=== PATIENT | male | born 1930 | race Caucasian/White ===

== ENCOUNTER → 2017-06-02 | Outpatient (CLI) | payer OTHER ==
[~2017-06-02] MED LIST: ACETAMINOPHEN1 EACH PO; AMBIEN 5 MG TABL5 M1 PO; ARTIFICIAL TEAR15 M1 OPHTHALMIC; ASPIR 8181 MG PO; ATORVASTATIN CA40 MG PO; BUTALB-APAP-CA1 EACH PO; CARVEDILOL6.25 MG PO; CHILDREN'S ASPI81 M1 PO; CLARITIN10 MG PO; COLACE100 MG PO; COREG6.25 MG PO; COUMADIN 3 MG TA3 M1 PO; COUMADIN 4 MG TA4 M1 PO; CYCLOBENZAPRINE10 MG PO; DIGOXIN125 MCG PO; DOXYCYCLINE 10100 MG PO; DUONEB 2.5-0.5 M3 ML INH; DUONEB 2.5-0.5 M3 ML PO; FINASTERIDE5 MG PO; FLEXERIL PO; FLOMAX0.4 MG PO; FLONASE 0.05%50 MCG NASAL; FUROSEMIDE 40 M40 M1 PO; HYDROCODONE-AP1 EAC6 PO; LASIX 40 MG TAB40 M2 PO; LEVAQUIN 500 M500 M1 PO; LEVAQUIN 500 M500 M2 PO; LEVAQUIN 750 M750 MG PO; LISINOPRIL2.5 M1 PO; LISINOPRIL2.5 MG PO; LORATIDINE 10 M10 M1 PO; MIRALAX17 GM PO; MIRALAX255 GM PO; MUCINEX TA600 MG/TA2 PO; NITROGLYCERIN0.4 MG SUBLING; PACERONE 200 M200 M1 PO; PACERONE200 MG PO; PLAVIX 300 MG300 M1 PO; POTASSIUM20 PO; PROSCAR 5MG TABL5 MG PO; PROTONIX40 M1 PO; SENOKOT-S1 TA1 PO; SINGULAIR 10 MG10 M1 PO; SYNTHROID150 MCG PO; TESSALON PERLE100 MG PO; TYLENOL325 MG PO; VISINE-A EYE DR15 M1 OP; VITAMIN D250000 UNIT PO
[2017-06-02 14:23] LABS: CALCIUM 8.9 mg/dL (8.5-10.1); CREATININE 1.5 mg/dL (0.6-1.3); POTASSIUM 4.3 mmol/L (3.5-5.1)
== END ==
LOC: M.LAB 13:48
PROVIDERS: Internal Medicine Cardiovascular Disease
DX: I12.9 Hypertensive chronic kidney disease with stage 1 through stage 4 chronic kidney disease, or unspecified chronic kidney disease (principal); N18.4 Chronic kidney disease, stage 4 (severe); I48.91 Unspecified atrial fibrillation; E87.1 Hypo-osmolality and hyponatremia; E78.5 Hyperlipidemia, unspecified; I25.10 Atherosclerotic heart disease of native coronary artery without angina pectoris; N40.0 Benign prostatic hyperplasia without lower urinary tract symptoms; N17.9 Acute kidney failure, unspecified; Z87.891 Personal history of nicotine dependence

== ENCOUNTER 2017-08-25 06:48 | Inpatient (IN) | payer OTHER, SELFPAY ==
[~2017-08-25] VITALS: Ht 160 cm; Wt 79.4 kg
--- NOTE | ~2017-08-25 | EKG ---
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 CARRION : 1930 Requested By: Sha Domingo Order Number: [id number] MD: Measurements Intervals [place] Rate: 77 P: GA: QRS: -12 QRSD: 102 T: 164 QT: 363 QTc: 411 Interpretive Statements Atrial fibrillation Ventricular bigeminy Repol abnrm suggests ischemia, anterolateral Compared to ECG 08/30/2017 09:37:07 Ventricular premature complex(es) now present Early repolarization now present Supraventricular rhythm no longer present Inferior Q waves no longer present Q waves no longer present T-wave abnormality no longer present Possible ischemia still present [email or web address] By: 40 40 Epiphany Epiphany, /IRVING
[~2017-08-25 06:48] MED LIST changes: -DIGOXIN125 MCG PO; -DOXYCYCLINE 10100 MG PO; -FINASTERIDE5 MG PO; -LEVAQUIN 750 M750 MG PO; -PROTONIX40 M1 PO; -SYNTHROID150 MCG PO; -VITAMIN D250000 UNIT PO
[2017-08-25 06:52] VITALS: BP 141/69
[2017-08-25] MEDS ORDERED: FINASTERIDE5 MG PO (07:06)
[2017-08-25] MEDS ORDERED: NITROGLYCERIN0.4 MG SUBLING (07:07)
[2017-08-25] MEDS ORDERED: SYNTHROID150 MCG PO (07:08)
[2017-08-25] MEDS ORDERED: VITAMIN D250000 UNIT PO (07:08)
[2017-08-25 07:29] LABS: URINE BILIRUBIN NEGATIVE (Negative); URINE BLOOD NEGATIVE (Negative); URINE CLARITY CLEAR; URINE COLOR YELLOW; URINE GLUCOSE-RANDOM NEGATIVE (Negative); URINE KETONES NEGATIVE (Negative); URINE LEUKOCYTES-REFLEX NEGATIVE (Negative); URINE NITRITE-REFLEX NEGATIVE (Negative); URINE PROTEIN TRACE (Negative); URINE SPECIFIC GRAVITY 1.015 (1.005-1.030)
[2017-08-25 07:40] LABS: ABSOLUTE EOSINOPHILS 0.1 thou/uL (0.0-0.7); ABSOLUTE LYMPHOCYTES 3.2 thou/uL (0.8-5.3); ABSOLUTE MONOCYTES 1.5 thou/uL (0.0-1.2); ABSOLUTE NEUTROPHILS 5.5 thou/uL (1.6-8.1); BASOPHILS 0.4 %; EOSINOPHILS 0.5 %; HEMATOCRIT 40.2 % (42.0-52.0); HEMOGLOBIN 13.6 gm/dL (14.0-18.0); LYMPHOCYTES 30.7 %; MCH 34.4 pg (26.0-34.0); MCHC 33.9 g/dL (28.0-37.0); MCV 101.6 fL (80.0-100.0); MONOCYTES 14.7 %; NUCLEATED RBCS 0 /100WBC; PLATELET COUNT* 149 thou/uL (150-400); POLYS 53.7 %; RBC 3.96 mil/uL (4.50-6.00); WBC 10.3 thou/uL (4.0-11.0)
[2017-08-25 07:51] LABS: ANION GAP 4 mmol/L (7-16); BUN 14 mg/dL (7-18); CALCIUM 8.4 mg/dL (8.5-10.1); CHLORIDE 108 mmol/L (98-107); CO2 32 mmol/L (21-32); CREATININE 1.3 mg/dL (0.6-1.3); GLUCOSE 106 mg/dL (70-99); POTASSIUM 3.4 mmol/L (3.5-5.1); SODIUM 144 mmol/L (136-145)
[2017-08-25 07:53] LABS: INR 1.1; PROTIME 11.1 Seconds (9.20-11.50)
[2017-08-25 08:01] LABS: ALBUMIN 3.4 g/dL (3.4-5.0); ALKALINE PHOSPHATASE 55 U/L (46-116); NT-PRO BRAIN NAT PEPTIDE 1779 pg/mL (<300); SGOT 17 U/L (15-37); SGPT 12 U/L (30-65); TOTAL BILIRUBIN 1.3 mg/dL (<0.1-1.0); TOTAL PROTEIN 6.7 g/dL (6.4-8.2); TROPONIN-I LEVEL <0.06 ng/mL (<0.06)
[2017-08-25 12:10] LABS: CALCIUM 8.6 mg/dL (8.5-10.1); CREATININE 1.3 mg/dL (0.6-1.3); MAGNESIUM 1.8 mg/dL (1.8-2.4); POTASSIUM 3.6 mmol/L (3.5-5.1)
[2017-08-25 12:50] VITALS: BP 134/67
--- NOTE | 2017-08-25 14:28 | EKG ---
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 : 1930 Requested By: Samson Menendez Order Number: [id number] MD: Abe Longoria Measurements Intervals [place] Rate: 86 P: -39 IN: 201 QRS: -10 QRSD: 103 T: 141 QT: 379 QTc: 454 Interpretive Statements Sinus rhythm Ventricular bigeminy Abnormal T, consider ischemia, lateral leads Baseline wander in lead(s) V1 Compared to ECG 04/30/2016 21:25:35 T-wave abnormality now present Possible ischemia now present Left bundle-branch block no longer present ST (T wave) deviation no longer present Electronically Signed On 08-25-2017 14:28:16 CDT by Abe Longoria [email or web address] <ELECTRONICALLY SIGNED> By: Abe Longoria MD, [facility] 08/25/17 1428 0655 0655 Abe Longoria MD, [facility] /EPI
--- NOTE | 2017-08-25 16:28 | NUR ---
VSS, ASSUMED CARE OF PT FROM ER, ASSESSMENT PERFORMED AND CHARTED, FALL PRECAUTIONS IN PLACE AND CALL LIGHT IN REACH, PT IS A&O4 AND [place], PT IS TRACING SR ON THE MONITOR AND INTERMIT BIGEMINY PT DENIES ANY PAIN AND IS UP WITH ONE, PT IS SOB AND ON 2L NC BUR LUNGS ARE CLR/DIM, WILL FOLLOW WITH PLAN OF CARE,
[2017-08-25 16:29] VITALS: BP 128/68
[2017-08-25 20:00] VITALS: BP 120/55
[2017-08-26] VITALS (7 sets, daily range): BP systolic 91–132; BP diastolic 44–67
[2017-08-26 02:17] LABS: BE 3.8 mmol/L (-2 to +3); HCO3 29.6 mmol/L (22.0-26.0); PCO2 49.1 mmHg (35.0-45.0); PO2 89.4 mmHg (75.0-100.0); pH 7.398 (7.340-7.450)
--- NOTE | 2017-08-26 02:35 | NUR ---
PHYSICIAN COLLABORATION-- RESPIRATION APPEAR LABORED ET WORSENING GRUNTS CAN BE HEARD, NOTED ACCESSORY USE SHORTEND EXPIATORY CYCLES -- O2 SAT 97 ON 1.5 L NC PATIENT REPORTS HOME USE OF NEBULIZERS HOWEVER NOT DOCUMENTED ON RECONCILIATION OR LISTED IN PHARMACY HISTORY. APPEARS VERY SYMPTOMATIC DR. SMITH GAVE ORDERS DOCUMENTED WILL CONTINUE TO MONITOR
[2017-08-26 05:47] LABS: HEMATOCRIT 41.5 % (42.0-52.0); HEMOGLOBIN 14.2 gm/dL (14.0-18.0); MCH 34.7 pg (26.0-34.0); MCHC 34.3 g/dL (28.0-37.0); MCV 101.1 fL (80.0-100.0); MPV 9.9 fl. (7.2-11.1); RBC 4.11 mil/uL (4.50-6.00); RDW-CV 13.8 % (10.5-14.5); WBC 11.4 thou/uL (4.0-11.0)
[2017-08-26 06:19] LABS: CALCIUM 8.4 mg/dL (8.5-10.1); CREATININE 1.7 mg/dL (0.6-1.3); MAGNESIUM 1.7 mg/dL (1.8-2.4); POTASSIUM 3.8 mmol/L (3.5-5.1)
--- NOTE | 2017-08-26 06:52 | NUR ---
ASSUMED CARE OF PATIENT AT 1900 THE PATIENT REMAINS SR ON THE MONITOR O2 SAT MAINTAINED ON RA CONTINUES TO BE UP WITH ASSIST OF STAFF DURING SHIFT ADDITIONAL ORDERS OBTAINED DUE TO INCREASED RESPIRATORY EFFORTS NOTED LABORED BREATHING ACCESSORY USE RECEIVED ORDERS DOCUMENTED INTERVENTIONS EFFECTIVE THIS AM RESPIRATIONS AT REST ARE NON-LABORED RATE NORMAL, NOTED COUGHING AFTER TAKING THIS AM SCHEDULED PILL WITH WATER PATIENT CONTINUES TO PROGRESS TOWARDS GOALS SAFETY INTERVENTIONS CONTINUE BED LOWERED WHEELS LOCKED CALL LIGHT IN REACH SIDE RAILS UP REPORT TO BE GIVEN TO ONCOMING RN
--- NOTE | 2017-08-26 10:12 | NUR ---
VSS, ASSUMED CARE IN THE AM, ASSESSMENT PERFORMED AND CHARTED, FALL PRECAUTIONS IN PLACE AND CALL LIGHT IN REACH, PT IS ON 1.5 L NC AND IS A&O4 BUT IS FORGEFUL. IS [place] UP WITH [place] ANY PAIN AT THIS TIME, PT IS TRACING SR C PVA AND 1 D BLK ON THE MONITOR, PT GOAL IS TO SIT UP FOR ALL MEALS AND IMPROVE BREATHING WILL FOLLOW WITH PLAN OF CARE AND HOURLY ROUNDS.
--- NOTE | 2017-08-26 18:15 | NUR ---
VSS, PT PROGRESSING TOWARDS GOAL, PT IS IN BED WITH CALL LIGHT IN REACH AND FALL PRECAUTIONS IN PLACE, PT WAS UP TO CHAIR FOR MEALS AND WAS GIVEN I-S FOR BREATHING, PT GOAL MET WITH IMPROVED BREATHING AND SITTING UP IN CHAIR, HOURLY ROUNDS COMPLETED. PT IS TRACING SR ON THE MONITOR AND NOT OTHER STATUS CHANGE NOTED AT THIS TIME.
[2017-08-27 04:00] VITALS: BP 113/43
[2017-08-27 04:51] LABS: HEMATOCRIT 39.7 % (42.0-52.0); HEMOGLOBIN 13.6 gm/dL (14.0-18.0); MCH 34.7 pg (26.0-34.0); MCHC 34.4 g/dL (28.0-37.0); MCV 100.9 fL (80.0-100.0); MPV 9.3 fl. (7.2-11.1); RBC 3.93 mil/uL (4.50-6.00); RDW-CV 13.7 % (10.5-14.5)
--- NOTE | 2017-08-27 05:08 | NUR ---
RECIEVED REPORT AT 1930. ASSESSMENT COMPLETED CHARTED. NO C/O PAIN. ABLE TO MAKE NEEDS KNOWN, CALL LIGHT WITHIN REACH, UP WITH ASSIST. NON PRODUCTIVE COUGH NOTED. UP WITH STANDBY. WILL CONTINUE WITH PLAN OF CARE.
[2017-08-27 05:42] LABS: CALCIUM 8.4 mg/dL (8.5-10.1); CREATININE 1.9 mg/dL (0.6-1.3); MAGNESIUM 2.4 mg/dL (1.8-2.4); POTASSIUM 3.6 mmol/L (3.5-5.1)
[2017-08-27 08:15] VITALS: BP 124/63
[2017-08-27 12:01] VITALS: BP 118/49
--- NOTE | 2017-08-27 13:31 | CON ---
[address] [address] CONSULTATION Name: JT MORRIS Room: [address] IN .R.#: [id number] Admission: 08/25/17 Attend Phys: Riccardo Mason, Discharge: Date of : [birth year] Report #: [id number] THIS REPORT FOR: //name// CC: Manuelito Mason DATE OF SERVICE: 08/26/2017 CARDIOLOGY CONSULTATION HISTORY OF PRESENT ILLNESS: I was asked by Dr. Mason to see this 87-year-old white male in cardiology consultation for evaluation and treatment of congestive heart failure with shortness of breath and history of bigeminy at some point. This man is a poor historian. He tells me that he has had headaches and neck pain with shortness of breath for quite a while. He does not know how long. It sounds like it maybe months or maybe even a year. He also gets quite short of breath with these episodes. He has general shortness of breath otherwise and he has been worse with shortness of breath for the last week, so he came to the Emergency Room. He has not had chest pain. PAST MEDICAL HISTORY: Includes coronary artery disease and ischemic cardiomyopathy, paroxysmal atrial fibrillation, pulmonary hypertension, GI bleeds, essential hypertension and hyperlipidemia. On his admission chest x-ray, he is said to have an increased density in the right lower lobe consistent with either pneumonia or atelectasis or right lung mass. I have looked at the x-rays. I do note that he has elevated diaphragms bilaterally, either that or he took a poor inspiration. One of the x-rays was read as showing pulmonary vascular redistribution, which may be there; however, I also think he has got some compression of lung from poor inspiration. He may have some chronic interstitial lung disease possibly. He does have dyspnea on exertion and orthopnea, but not PND. He does get edema. He has not had syncope. Coronary risk factors include a past history of smoking and he quit 40 years ago. He does have high cholesterol. He does not have diabetes. He does have high blood pressure. There is no family history of heart disease. He does have chronic renal disease. His most recent creatinine was 1.7, which is up a bit from admission where I believe it was 1.3 on admission. He has had a PCI to his right coronary artery in 2010. He had a GI bleed on warfarin. He has not had peripheral vascular disease or claudication, strokes or TIAs, but he is having quite a bit of head pain and neck pain. CT of the head was negative. Neck CT was not done nor was a CT of the chest done and those have been ordered by me. ALLERGIES: HE IS ALLERGIC TO PENICILLIN. HOME MEDICATIONS: Include aspirin 81 mg daily, carvedilol 6.25 mg b.i.d., finasteride 5 mg daily, furosemide 40 mg daily, levothyroxine [address] [place] [address] CONSULTATION Name: JT MORRIS Room: [address] IN [facility].#: [id number] Admission: 08/25/17 Attend Phys: Riccardo Mason, Discharge: Date of : [birth year] Report #: [id number] hypothyroidism, he is on lisinopril 2.5 mg daily, montelukast 10 mg at bedtime apparently for allergies, p.r.n. nitroglycerin, Flomax 0.4 mg daily and vitamin D 50,000 units weekly. REVIEW OF SYSTEMS: Positive for weakness, shortness of breath with exercise, shortness of breath lying down, extremity edema, thyroid trouble, peptic ulcer disease. Medical allergies, penicillin allergy, arthritis, wearing glasses, decreased hearing and wearing dentures. Otherwise, his review of systems is negative for some 40 different complaints in 14 different system categories. Please see review of system form for details and negatives in review of systems. Systems reviewed include central nervous system, general, respiratory, cardiovascular, endocrine, gastrointestinal, genitourinary, hematologic, lymphatic, allergic, immunologic, psychiatric, musculoskeletal, skin, eyes, ears, nose, mouth and throat. SOCIAL HISTORY: He is retired, does not smoke, drink or use illegal drugs. FAMILY HISTORY: Not well known to him. PHYSICAL EXAMINATION: GENERAL: He presents as well-developed, well-nourished white male, in no acute distress. HEENT: Head is atraumatic. Eyes clear. NECK: Supple. There is no jugular venous distention or hepatojugular reflux. Thyroid is not enlarged. There is no adenopathy. SKIN: Warm and dry. Mucous membranes are moist. LUNGS: Revealed clear left lungs, but there are markedly decreased breath sounds in the right lung with some coarse breath sounds in the base on the right. HEART: Revealed normal first and second heart sound. There is soft S4. There is no S3. There are no murmurs, rubs, thrills, heaves or gallops. PMI is nondisplaced. ABDOMEN: Soft, flat, nontender, no palpable masses, no organomegaly. EXTREMITIES: Reveal no cyanosis, clubbing or edema. NEUROLOGIC: The patient mentated fairly normally, talked normally, moved all extremities normally. LABORATORY DATA: EKG showed normal sinus rhythm with frequent ventricular premature beats and one run of ventricular bigeminy. His BNP was 1779. Troponin was 0.06. IMPRESSION: 1. Mild congestive heart failure that is probably apparently acute on chronic systolic type that has improved compared to admission as he was diuresed with IV Lasix since he has been there. 2. [place] [address] CONSULTATION Name: JT MORRIS Room: [address] IN ..#: [id number] Admission: 08/25/17 Attend Phys: Riccardo Mason, Discharge: Date of : [birth year] Report #: [id number] 3. Possible right lung mass. 4. Coronary artery disease. 5. Ischemic cardiomyopathy. 6. Paroxysmal atrial fibrillation. 7. Pulmonary hypertension. 8. Gastrointestinal bleeds. 9. Essential hypertension. 10. Hyperlipidemia. 11. Hypothyroidism. 12. Ventricular premature contractions that are asymptomatic. RECOMMENDATION: I would check an echo. I would recheck his BNP and BMP and a magnesium. I would get a CT of his chest today as well as a CT of his neck and spine because of his neck pain and poor inspiration. When his BNP comes back, he might be started back on his daily dose of Lasix. I am not sure I would adjust any of his other medicines as heart failure was only minimal here. Thank you very much for asking me to see this patient. If any questions, please feel free to contact me. <ELECTRONICALLY SIGNED> By: Carmenza Joshi MD, [facility] 08/27/17 1331 1231 [id number]. Sam Joshi MD, [facility] /nt
[2017-08-27 16:00] VITALS: BP 82/49
[2017-08-27 17:21] LABS: URINE BILIRUBIN NEGATIVE (Negative); URINE BLOOD NEGATIVE (Negative); URINE CLARITY CLEAR; URINE COLOR YELLOW; URINE GLUCOSE-RANDOM NEGATIVE (Negative); URINE KETONES NEGATIVE (Negative); URINE LEUKOCYTES-REFLEX NEGATIVE (Negative); URINE NITRITE-REFLEX NEGATIVE (Negative); URINE PROTEIN NEGATIVE (Negative); URINE UROBILINOGEN 0.2 E.U./dl (0.2-1.0)
[2017-08-27 17:27] VITALS: BP 92/50
--- NOTE | 2017-08-27 18:50 | NUR ---
ASSUMED PT CARE AT 0730, FULL ASSESMENT DONE CHARTED. PT A/O X4, LUMBEE, PLESANT. PT C/O DOSHI PAIN, ALEVE GIVEN WITH GOOD RESULTS. PTS VSS, BP LOW THIS AFTERNOON, DR LASSITER NOTIFIED, NO NEW ORDERS, WILL MONITOR CLOSLY. PTS FAMILY IN TO VISIT, ABLE TO GET UPDATE FROM DR LASSITER. PT WAS UNABLE TO VOID THIS AM, BLADDER SCANNED FOUND TO HAVE >500 MLS IN BLADDER, PT VOIDED AND SCANNED HAD 280 REMAINING, STRAIT CATH ORDERED FROM . PTS BLADDER EMPTIED AT THIS POINT. PT USES CALL LIGHT APPROPRILATY. FALL PRECATUIONS IN PLACE. WILL CONTINUE TO MONITOR.
[2017-08-28 00:08] VITALS: BP 95/53
--- NOTE | 2017-08-28 03:59 | NUR ---
ASSUMED CARE OF PT AT 1900. PT IS ALERT AND ORIENTED. VSS. PERRLA. PT REORTS SOME SOA WITHOUT HIS O2. PT IS IN SINUS RYTHM AT THIS TIME BUT ALSO HAS BEEN NOTED TO BE IN A FIB. PT HAS A HISTORY OF PAROXYSMALS A FIB. PT IS SLEEPING QUIETLY IN BED. RESPIRATIONS ARE EVEN AND NONLABORED. WILL CONTINUE TO MONITOR PT.
[2017-08-28 04:13] VITALS: BP 76/51
[2017-08-28 05:01] LABS: HEMATOCRIT 38.4 % (42.0-52.0); HEMOGLOBIN 13.2 gm/dL (14.0-18.0); MCH 34.6 pg (26.0-34.0); MCHC 34.4 g/dL (28.0-37.0); MCV 100.4 fL (80.0-100.0); MPV 9.2 fl. (7.2-11.1); RBC 3.82 mil/uL (4.50-6.00); RDW-CV 13.5 % (10.5-14.5); WBC 7.2 thou/uL (4.0-11.0)
[2017-08-28 05:46] LABS: ALBUMIN 3.1 g/dL (3.4-5.0); CREATININE 2.1 mg/dL (0.6-1.3); MAGNESIUM 2.4 mg/dL (1.8-2.4); POTASSIUM 3.6 mmol/L (3.5-5.1); TOTAL BILIRUBIN 1.2 mg/dL (<0.1-1.0); TOTAL PROTEIN 5.9 g/dL (6.4-8.2)
--- NOTE | 2017-08-28 06:58 | NUR ---
PT HAD 250 ML VIA BLADDER SCAN. PT VOIDED AND SCANNED AGAIN SHOWING ONLY 55 ML
[2017-08-28 07:30] VITALS: BP 100/60
--- NOTE | 2017-08-28 08:31 | NUR ---
VSS, ASSUMED CARE IN THE AM, ASSESSMENT PERFORMED AND CHARTED, FALL PRECAUTIONS IN PLACE AND CALL LIGHT IN REACH, PT IS A&O4 AND [place], UP WITH ONE, ON 2L NC, TRACING SR WITH PVC AND 1DBLK, PT HAS A HEADACH, HIS GOAL IS TO SIT UP IN CHAIR FOR MEALS AND WALK IN ROOM.
[2017-08-28 12:07] VITALS: BP 105/46
[2017-08-28 15:15] VITALS: BP 90/47
--- NOTE | 2017-08-28 15:30 | NUR ---
CM ASSESSMENT: Pt is A&O, SITKA. Resides at home with his and Dtr. Independent with ADLs. Pt uses a cane for mobility, also has a walker at home. Supportive family. No hx of HH. Hx of [facility] skilled. Goal is to return home once medically stable. No needs anticipated. Following.
--- NOTE | 2017-08-28 17:02 | NUR ---
VSS, PT IS PROGRESSING TOWARDS GOAL, PT WORKED WITH PT/OT HAS BEEN UP IN CHAIR FOR MEALS, PT IS ON RA AND IS TRACING SR ON THE MONITOR AND HE IS A&O4 BUT [place] AND FORGEFUL, FALL PRECAUTIONS IN PLACE AND CALL LIGHT IN REACH, HOURLY ROUNDS COMPLETED AND WILL FOLLOW WITH PLAN OF CARE,
--- NOTE | 2017-08-28 17:57 | EKG ---
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 : 1930 Requested By: Amos Polo Order Number: [id number] Reading MD: Amos Polo Measurements Intervals [place] Rate: 96 P: 222 NE: 277 QRS: 2 QRSD: 108 T: 160 QT: 399 QTc: 505 Interpretive Statements Sinus or ectopic atrial rhythm ventricular premature complexes, trigeminy Prolonged NE interval Compared to ECG 08/25/2017 06:55:44 Ectopic atrial rhythm now present First degree AV block now present Sinus rhythm no longer present T-wave abnormality still present Possible ischemia still present Electronically Signed On 08-28-2017 17:56:57 CDT by Amos Polo [email or web address] <ELECTRONICALLY SIGNED> By: Amos Polo MD, FACC 08/28/17 1756 0901 0901 Amos Polo MD, FAC /EPI
[2017-08-28 20:00] VITALS: BP 98/52
[2017-08-29] VITALS: BP 92/56
--- NOTE | 2017-08-29 03:36 | NUR ---
ASSUMED PT CARE AT 19;15. PT IS ALERT, AWAKE, ORIETNED X 4 , SINUS TACHY ON THE MONITOR WITH MULTIPLE PVCS. PT COMPLAINS OF HEADACHE LEVEL OF 5. ALEVE ADMINITERED TO RELIEVE PAIN. VITAL SIGNS TAKEN. BP IS 98/52, HR 121. PT IS ASYMPTOMATIC. VITAL SIGNS RESULTS WERE COMMUNICATED TO AGENCY SERVICE COORDINATOR. AROUND 3:00 AM PT RYTHM CHANGES ON AEROBICS INSTRUCTOR TO Nicole FLUTTER. STAT EKG PERFORMED IN THE ROOM. RESULTS SHOWS CHANGE OF RYTHM A. FLUTTER. BP IS 89/46 , HR 125 PT IS STILL ASYMPTOMATIC. CALL PLACED TO DR MCKEON CARDIOLOGIDT ON CASE. AWAITING CALL BACK. CHANGE COMMUNICATED TO DR. HUYNH. STATES TO WAIT FOR HR BUSINESS PARTNER CALL BACK. EKG SCRIPT PLACED IN CHART. PT IS NOW SITTING IN THE CHAIR IN THE ROOM . AWAITING CALL BACK AT THIS MOMENT. WILL CONTINUE TO MONITOR.
--- NOTE | 2017-08-29 04:02 | NUR ---
DR MCKEON CALL BACK AND GAVE NEW ORDER. SEE MAR.
[2017-08-29 05:23] LABS: ABSOLUTE BASOPHILS 0.1 thou/uL (0.0-0.2); ABSOLUTE EOSINOPHILS 0.2 thou/uL (0.0-0.7); ABSOLUTE LYMPHOCYTES 1.8 thou/uL (0.8-5.3); ABSOLUTE MONOCYTES 0.9 thou/uL (0.0-1.2); ABSOLUTE NEUTROPHILS 3.9 thou/uL (1.6-8.1); BASOPHILS 0.8 %; EOSINOPHILS 2.9 %; HEMATOCRIT 39.9 % (42.0-52.0); HEMOGLOBIN 13.6 gm/dL (14.0-18.0); LYMPHOCYTES 26.7 %; MCH 34.4 pg (26.0-34.0); MCHC 34.2 g/dL (28.0-37.0); MCV 100.7 fL (80.0-100.0); MONOCYTES 13.7 %; MPV 9.6 fl. (7.2-11.1); NUCLEATED RBCS 0 /100WBC; PLATELET COUNT* 169 thou/uL (150-400); POLYS 55.9 %; RBC 3.96 mil/uL (4.50-6.00); RDW-CV 13.4 % (10.5-14.5); WBC 6.9 thou/uL (4.0-11.0)
[2017-08-29 05:49] LABS: ALBUMIN 3.2 g/dL (3.4-5.0); CALCIUM 8.4 mg/dL (8.5-10.1); CREATININE 1.8 mg/dL (0.6-1.3); POTASSIUM 3.6 mmol/L (3.5-5.1); TOTAL PROTEIN 6.2 g/dL (6.4-8.2)
[2017-08-29 08:13] VITALS: BP 116/65
--- NOTE | 2017-08-29 08:24 | 2DMMODE ---
[place] [address] 2 D/M-MODE ECHOCARDIOGRAM Name: JT MORRIS Room: [address] IN [facility]#: [id number] Admission: 08/25/17 Attend Phys: Riccardo Daniel Discharge: Date of : [birth year] Date of Service: 08/28/17 1456 Report #: [id number] THIS REPORT FOR: //name// APPROVED REPORT Study performed: 08/28/2017 10:51:46 EXAM: Comprehensive 2D, Doppler, and color-flow Echocardiogram Patient Location: In-Patient Room #: 220 Status: routine BSA: 1.85 HR: 83 bpm BP: 100/60 mmHg Rhythm: Atrial Fibrillation Other Information Study Quality: Good Indications Congestive Heart Failure Dyspnea 2D Dimensions LVEF(%): 35.96 (>50%) IVSd: 12.26 (7-11mm) LVOT Diam: 20.63 (18-24mm) LVDd: 51.16 mm PWd: 11.32 (7-11mm) Ascending Ao: 32.83 (22-36mm) LVDs: 42.29 (25-40mm) Aortic Root: 34.00 mm Gregg's LVEF: 35.96 % Volumes Left Atrial Volume (Systole) LA ESV Index: 67.70 mL/m2 Aortic Valve AoV Peak Archie.: 1.03 m/s AO Peak Gr.: 4.25 mmHg LVOT Max P.68 mmHg AO Mean Gr.: 2.46 mmHg LVOT Mean P.92 mmHg LVOT Max V: 0.65 m/s AO V2 VTI: 19.74 cm LVOT Mean V: 0.45 m/s OTONIEL (VTI): 1.90 cm2 LVOT V1 VTI: 11.24 [place] [address] 2 D/M-MODE ECHOCARDIOGRAM Name: JT MORRIS Room: [address] IN .R.#: [id number] Admission: 08/25/17 Attend Phys: Riccardo Daniel Discharge: Date of : [birth year] Date of Service: 08/28/17 1456 Report #: [id number] MV Decel. Time: 173.60 ms MV E Max Archie.: 1.63 m/s MV PHT: 50.34 ms MVA (PHT): 4.37 cm2 TDI E/Lateral E': 10.19 E/Medial E': 23.29 Medial E' Archie.: 0.07 m/s Lateral E' Archie.: 0.16 m/s Pulmonary Valve PV Peak Archie.: 0.79 m/s PV Peak Gr.: 2.47 mmHg Tricuspid Valve TR Peak Gr.: 24.50 mmHg RVSP: 29.00 mmHg Left Ventricle The left ventricle is normal size. There is normal LV segmental wall motion. There is normal left ventricular wall thickness. Left ventricular systolic function is moderately decreased. LVEF is 40%. This study is not technically sufficient to allow evaluation of the LV diastolic function due to atrial fibrillation. Right Ventricle The right ventricle is normal size. The right ventricular systolic function is normal. Atria Left atrium is severely dilated. Right atrium is mildly dilated. Aortic Valve Mild aortic valve sclerosis. No aortic regurgitation is present. No hemodynamically significant valvular aortic stenosis. Mitral Valve The mitral valve is normal in structure. Mild mitral regurgitation. No evidence of mitral valve stenosis. Tricuspid Valve The tricuspid valve is normal in structure. Trace tricuspid regurgitation. The RVSP is ___29____ mmHg. Pulmonic Valve The pulmonary valve is normal in structure. There is no pulmonic [place] [address] 2 D/M-MODE ECHOCARDIOGRAM Name: JT MORRIS Room: [address] IN [facility]#: [id number] Admission: 08/25/17 Attend Phys: Riccardo Daniel Discharge: Date of : [birth year] Date of Service: 08/28/17 1456 Report #: [id number] Great Vessels The aortic root is normal in size. IVC is normal in size and collapses with >50% inspiration Pericardium There is no pericardial effusion. <Conclusion> The left ventricle is normal size. There is normal left ventricular wall thickness. Left ventricular systolic function is moderately decreased. LVEF is 40%. This study is not technically sufficient to allow evaluation of the LV diastolic function due to atrial fibrillation. The right ventricle is normal size. Left atrium is severely dilated. Right atrium is mildly dilated. Mild aortic valve sclerosis. No aortic regurgitation is present. No hemodynamically significant valvular aortic stenosis. The mitral valve is normal in structure. Mild mitral regurgitation. No evidence of mitral valve stenosis. The tricuspid valve is normal in structure. Trace tricuspid regurgitation. The RVSP is ___29____ mmHg. IVC is normal in size and collapses with >50% inspiration There is no pericardial effusion. There is normal LV segmental wall motion. <ELECTRONICALLY SIGNED> By: Benjie Reyna MD, FACC 08/28/17 1456 1456 1456 Benjie Reyna MD, FACC /INF
--- NOTE | 2017-08-29 09:33 | NUR ---
ASSUMED CARE OF PATIENT AFTER REPORT THIS MORNING. PATIENT AWAKE, ALERT, AND ORIENTED APPROPRIATELY. PHYSICAL ASSESSMENT COMPLETED AND CHARTED. NO COMPLAINTS OF PAIN. VITAL SIGNS STABLE. OXYGEN SATURATION WITHIN NORMAL LIMITS ON 2 LPM PER NASAL CANULA. RESPIRATORY TITRATED PATIENT OFF OF OXYGEN. WILL RECHECK SATURATION ON ROOM AIR. GIVEN SCHEDULED MEDICATIONS, SEE EMAR FOR DOCUMENTATION. PATIENT TRANSFERS AND AMBULATES WITH ASSISTANCE FROM STAFF. USES CALL LIGHT APPROPRIATELY. DENIES NEEDS AT THIS TIME. CALL LIGHT WITHIN REACH. NURSING WILL CONTINUE TO MONITOR.
[2017-08-29 11:56] VITALS: BP 110/56
--- NOTE | 2017-08-29 14:04 | EKG ---
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
[2017-08-29 15:39] VITALS: BP 104/49
--- NOTE | 2017-08-29 17:04 | EKG ---
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: [employer] : 1930 Requested By: Kenneth Maza Order Number: [id number] Risa MD: Amos Polo Measurements Intervals [place] Rate: 66 P: [place]: QRS: 7 QRSD: 109 T: 120 QT: 428 QTc: 449 Interpretive Statements Atrial flutter Ventricular premature complex Nonspecific T abnormalities, lateral leads Compared to ECG 08/29/2017 02:53:44 Ventricular premature complex(es) now present T-wave abnormality now present ST (T wave) deviation now present Atrial fibrillation no longer present Prolonged QT interval no longer present Electronically Signed On 08-29-2017 17:04:28 CDT by Amos Polo [email or web address] <ELECTRONICALLY SIGNED> By: Amos Polo MD, FACC 08/29/17 1704 1420 1420 Amos Polo MD, FACC /EPI
--- NOTE | 2017-08-29 17:23 | NUR ---
PATIENT REMAINS ALERT AND ORIENTED APPROPRIATELY. THIS NURSE NOTICED IRREGULAR-LOOKING RHYTHM ON ARMATURE WINDER. OBTAINED EKG AND RESULTS READ ATRIAL FLUTTER. PATIENT HAS FREQUENT PVCS AND PACS WELL. CURRENTLY TRACING BIGEMINY. HAS USED BATHROOM PRIVELEGES. FAMILY VISITED THIS AFTERNOON. PATIENT DENIES NEEDS AT THIS TIME. CALL LIGHT WITHIN REACH. NURSING WILL CONTINUE TO MONITOR.
[2017-08-29 19:50] VITALS: BP 117/59
[2017-08-29 23:38] VITALS: BP 115/69
[2017-08-30 04:25] VITALS: BP 106/45
[2017-08-30 05:54] LABS: ALBUMIN 3.2 g/dL (3.4-5.0); CALCIUM 8.5 mg/dL (8.5-10.1); CREATININE 1.6 mg/dL (0.6-1.3); MAGNESIUM 2.3 mg/dL (1.8-2.4); TOTAL BILIRUBIN 0.9 mg/dL (<0.1-1.0); TOTAL PROTEIN 6.2 g/dL (6.4-8.2)
--- NOTE | 2017-08-30 07:10 | NUR ---
Pt reports he rested well overnight. Up to recliner per pt request at [place] and stayed there until 299. Warm prune & apple juice given for no BM since Monday. No BM up to this point. Appears to be in SR with 1st degree AVB with frequent PVCs per monitor. VSS, no complaints. Will continue to monitor.
[2017-08-30 08:00] VITALS: BP 119/72
[2017-08-30 09:36] VITALS: BP 119/73
--- NOTE | 2017-08-30 10:42 | NUR ---
ASSUMED PT CARE AT 0700 PT IS ALERT AND ORIETNED X 4 PT IS UP WITH SBA PT IS NOT A FALL RISK, PT HAS PVC ON THE MONITOR CARDIOLOGY CLEARED PT TO DISCHARGE, PT CAN START PO LEVAQUIN ONCE DISCHARGED AND HOLD IV LEVAQUIN PER PHYSICIAN, PT IS PLEASANT AND COOPERATIVE, WILL CONTINUE TO MONITOR
[2017-08-30] MEDS ORDERED: DIGOXIN125 MCG PO (11:42)
[2017-08-30] MEDS ORDERED: LEVAQUIN 750 M750 MG PO (11:42)
--- NOTE | 2017-08-30 16:12 | EKG ---
[place] [address] ELECTROCARDIOGRAM REPORT Name: JT MORRIS Room: [address] IN M.R.#: [id number] Admission: 08/25/17 Attend Phys: Riccardo Mason, Discharge: 08/30/17 Date of : [birth year] Report #: [id number] THIS REPORT FOR: //name// [facility] Test Date: 2017-08-30 Test Time: 09:37:07 Pat Name: JT MORRIS Department: Room: [address] Gender: M [employer]: : 1930 Requested By: Adilia Case Order Number: [id number] Reading MD: Benjie Reyna Measurements Intervals [place] Rate: 94 P: 0 DE: 218 QRS: -5 QRSD: 112 T: 171 QT: 339 QTc: 424 Interpretive Statements Supraventricular rhythm with rare pvc's Borderline intraventricular conduction delay Abnormal inferior Q waves Abnormal T, consider ischemia, lateral leads Compared to ECG 08/29/2017 14:20:36 Rate has increased Electronically Signed On 08-30-2017 16:12:40 CDT by Benjie Reyna [email or web address] <ELECTRONICALLY SIGNED> By: Benjie Reyna MD, [facility] 08/30/17 1612 0937 0937 Benjie Reyna MD, [facility] /EPI
== END 2017-08-30 12:37 | disposition home health service (06) | DRG 177 ==
LOC: M.ERS 06:48 → M.TBA-ER 09:06 → M.2W 09:06
PROVIDERS: Emergency Medicine; Internal Medicine; ADMIT Family Medicine
PROC: B24BZZ4 Ultrasonography of Heart with Aorta, Transesophageal (ICD-10-PCS; principal; 2017-08-28)
DX: J15.6 Pneumonia due to other Gram-negative bacteria (principal); J96.01 Acute respiratory failure with hypoxia; J96.02 Acute respiratory failure with hypercapnia; N17.0 Acute kidney failure with tubular necrosis; I50.43 Acute on chronic combined systolic (congestive) and diastolic (congestive) heart failure; K92.2 Gastrointestinal hemorrhage, unspecified; I48.92 Unspecified atrial flutter; I11.0 Hypertensive heart disease with heart failure; N40.0 Benign prostatic hyperplasia without lower urinary tract symptoms; H66.92 Otitis media, unspecified, left ear; H70.92 Unspecified mastoiditis, left ear; I48.0 Paroxysmal atrial fibrillation; H61.21 Impacted cerumen, right ear; D75.89 Other specified diseases of blood and blood-forming organs; I25.10 Atherosclerotic heart disease of native coronary artery without angina pectoris; I25.5 Ischemic cardiomyopathy; I27.20 Pulmonary hypertension, unspecified; E78.5 Hyperlipidemia, unspecified; E03.9 Hypothyroidism, unspecified; I49.3 Ventricular premature depolarization; Z87.891 Personal history of nicotine dependence; Z85.828 Personal history of other malignant neoplasm of skin; Z95.5 Presence of coronary angioplasty implant and graft; Z79.82 Long term (current) use of aspirin; Z79.899 Other long term (current) drug therapy; Z88.0 Allergy status to penicillin

== ENCOUNTER 2017-08-31 17:14 | Inpatient (IN) | payer OTHER, SELFPAY ==
[~2017-08-31] VITALS: Ht 160 cm; Wt 74.4 kg
[~2017-08-31 17:14] MED LIST changes: +DIGOXIN125 MCG PO; +FINASTERIDE5 MG PO; +LEVAQUIN 750 M750 MG PO; +SYNTHROID150 MCG PO; +VITAMIN D250000 UNIT PO
[2017-08-31 17:22] VITALS: BP 113/61
[2017-08-31 17:51] LABS: HEMATOCRIT 39.8 % (42.0-52.0); HEMOGLOBIN 13.7 gm/dL (14.0-18.0); MCH 34.7 pg (26.0-34.0); MCHC 34.4 g/dL (28.0-37.0); MCV 100.9 fL (80.0-100.0); MPV 8.5 fl. (7.2-11.1); RBC 3.94 mil/uL (4.50-6.00); RDW-CV 13.3 % (10.5-14.5); WBC 8.2 thou/uL (4.0-11.0)
[2017-08-31 17:56] LABS: CALCIUM 9.1 mg/dL (8.5-10.1); CREATININE 1.7 mg/dL (0.6-1.3); POTASSIUM 4.3 mmol/L (3.5-5.1)
[2017-08-31 18:08] LABS: URINE BILIRUBIN NEGATIVE (Negative); URINE BLOOD NEGATIVE (Negative); URINE CLARITY CLEAR; URINE COLOR YELLOW; URINE GLUCOSE-RANDOM NEGATIVE (Negative); URINE KETONES NEGATIVE (Negative); URINE LEUKOCYTES-REFLEX NEGATIVE (Negative); URINE NITRITE-REFLEX NEGATIVE (Negative); URINE PROTEIN NEGATIVE (Negative); URINE SPECIFIC GRAVITY 1.025 (1.005-1.030); URINE UROBILINOGEN 0.2 E.U./dl (0.2-1.0)
[2017-08-31 21:34] VITALS: BP 123/52
[2017-08-31 21:50] VITALS: BP 128/68
[2017-09-01 00:06] VITALS: BP 127/74
--- NOTE | 2017-09-01 02:55 | NUR ---
PATIENT RESTED IN BED NO ACUTE CHANGES. PATIENT DID NOT SHOW SIGNS OF DISTRESS. FALL PRECAUTIONS IN PLACE, BED ALARM ON, HOURLY ROUNDING OBSERVED, CALL LIGHT WITHIN REACH. URINE OUTPUT WILL BE MONITOR AND TREATED.
[2017-09-01 04:00] VITALS: BP 117/60
--- NOTE | 2017-09-01 07:20 | NUR ---
CHANGE OF SHIFT BEDSIDE REPORT GIVEN PATIENT SEEN IN BED AND RESTING NO REQUESTS AT THIS TIME BED ALARM SET ASSUMED PATIENT CARE
[2017-09-01 07:50] VITALS: BP 120/65
--- NOTE | 2017-09-01 10:53 | NUR ---
CM ASSESSMENT: Pt is A&O. Recently dc from the hospital, spoke with Dr Mccall, he is recommending skilled. Spoke with Pt, and dtr, they do not want Pt going to skilled, but are open to HH. requested that Pt uses [facility] at dc. Faxed facesheet and H&P. Pt resides at home with his , dtr and FELIPE. Normally fairly independent. Pt uses a cane or walker for mobility. Hx of skilled at [facility]. Hx of HH, years ago. Anticipate that Pt will be ready to dc within the next 1-2 days. DC orders will need to be faxed to [facility] at [phone], p:[phone]
[2017-09-01 12:51] VITALS: BP 151/84
[2017-09-01 16:00] VITALS: BP 145/70
--- NOTE | 2017-09-01 18:16 | NUR ---
PATIENT LAYING IN BED AND RESTING REMAINS A AND O X 4, [place] SR LUNGS CTA/DIM/RA APPETITE FAIR LAST BM REPORTED T-2 UO IMPROVING, APPROX 800 CC UO, SRAW COLOR URINE UP WITH ONE ASSIST SCDS REF IS 20 GA R AC SL NO C/O PAIN TODAY CALL LIGHT INSTRUCTION GIVEN AND IN REACH AND FOLLOWED BED ALARM ON
[2017-09-01 20:00] VITALS: BP 110/47
[2017-09-02 01:11] VITALS: BP 119/49
[2017-09-02 04:00] VITALS: BP 130/67
[2017-09-02 05:30] LABS: ABSOLUTE EOSINOPHILS 0.1 thou/uL (0.0-0.7); ABSOLUTE LYMPHOCYTES 2.6 thou/uL (0.8-5.3); ABSOLUTE MONOCYTES 0.7 thou/uL (0.0-1.2); BASOPHILS 0.5 %; EOSINOPHILS 1.6 %; HEMATOCRIT 37.1 % (42.0-52.0); HEMOGLOBIN 12.7 gm/dL (14.0-18.0); MCH 34.4 pg (26.0-34.0); MCHC 34.2 g/dL (28.0-37.0); MCV 100.6 fL (80.0-100.0); MONOCYTES 9.6 %; MPV 8.9 fl. (7.2-11.1); NUCLEATED RBCS 0 /100WBC; PLATELET COUNT* 206 thou/uL (150-400); POLYS 53.3 %; RBC 3.69 mil/uL (4.50-6.00); RDW-CV 12.9 % (10.5-14.5); WBC 7.5 thou/uL (4.0-11.0)
[2017-09-02 05:46] LABS: CALCIUM 8.6 mg/dL (8.5-10.1); CREATININE 1.5 mg/dL (0.6-1.3); POTASSIUM 4.3 mmol/L (3.5-5.1)
--- NOTE | 2017-09-02 07:08 | NUR ---
PATIENT RESTED IN BED. PATIENT 02 DROP TO 86 OVERNIGHT THEN 2 LITERS OF OXYGEN WAS APPLIED. O2 RETURN TO NORMAL, PATIENT REMOVED FROM OXYGEN, PATIENT OXYGEN AT 95% ON ROOM AIR AT 0600. NO ACUTE CHANGES, PATIENT DID NOT SHOW SIGNS OF DISTRESS. NO CHEST PAIN, FALL PRECAUTIONS IN PLACE, BED ALARM ON, HOURLY ROUNDING OBSERVED.
--- NOTE | 2017-09-02 07:35 | NUR ---
PATIENT RESTED IN BED, NO ACUTE CHANGES, PATIENT DID NOT SHOW SIGNS OF DISTRESS. FALL PRECAUTIONS IN PLACE, BED ALARM ON, HOURLY ROUNDING OBSERVED, CALL LIGHT WITHIN REACH.
[2017-09-02 11:31] VITALS: BP 130/52
[2017-09-02 15:53] VITALS: BP 122/55
--- NOTE | 2017-09-02 16:39 | NUR ---
ALERT AND ORIENTED X4. UP WITH STAND BY ASSIST DURING AMBULATION. IV IS PATENT AND SALINE LOCKED. DENIES PAIN AND NAUSEA. TOLERATING DIET. ATTENDED PHYSICAL THERAPY THIS AM. VITAL SIGNS STABLE ON ROOM AIR. HOURLY ROUNDS HAVE BEEN MAINTAINED THROUGHOUT SHIFT. CALL LIGHT IS WITHIN REACH. NURSING WILL CONTINUE TO MONITOR.
[2017-09-02 20:00] VITALS: BP 153/60
[2017-09-03] VITALS (8 sets, daily range): BP systolic 85–144; BP diastolic 42–74
[2017-09-03 05:23] LABS: ABSOLUTE BASOPHILS 0.1 thou/uL (0.0-0.2); ABSOLUTE EOSINOPHILS 0.1 thou/uL (0.0-0.7); ABSOLUTE LYMPHOCYTES 2.9 thou/uL (0.8-5.3); ABSOLUTE MONOCYTES 0.8 thou/uL (0.0-1.2); ABSOLUTE NEUTROPHILS 3.7 thou/uL (1.6-8.1); BASOPHILS 0.7 %; EOSINOPHILS 1.9 %; HEMATOCRIT 35.9 % (42.0-52.0); HEMOGLOBIN 12.3 gm/dL (14.0-18.0); LYMPHOCYTES 38.5 %; MCH 34.4 pg (26.0-34.0); MCHC 34.2 g/dL (28.0-37.0); MCV 100.6 fL (80.0-100.0); MONOCYTES 10.6 %; MPV 8.7 fl. (7.2-11.1); NUCLEATED RBCS 0 /100WBC; PLATELET COUNT* 216 thou/uL (150-400); POLYS 48.3 %; RBC 3.57 mil/uL (4.50-6.00); RDW-CV 13.4 % (10.5-14.5); WBC 7.6 thou/uL (4.0-11.0)
[2017-09-03 05:56] LABS: CALCIUM 8.5 mg/dL (8.5-10.1); CREATININE 1.5 mg/dL (0.6-1.3); POTASSIUM 4.2 mmol/L (3.5-5.1); TOTAL BILIRUBIN 0.7 mg/dL (<0.1-1.0); TOTAL PROTEIN 5.6 g/dL (6.4-8.2)
--- NOTE | 2017-09-03 06:14 | NUR ---
ASSUMED PT CARE AT 1915 REPORT RECEIVED FROM NURSE PT IS ALERT AWAKE ORIENTED X 4 REASSESSMENT PERFORMED REFER TO ERIKA. NO COMPLAIN OF PAIN AT THIS TIME. VITAL SIGNS WITHIN NORMAL LIMIT. WANTS TO GET HIS MED EALRY SO HE CAN GO BACK TO SLEEP. SINUS RYTHM ON THE MONITOR BUT HAD AN EPISODE OF A FIB THAT LASTED 5 MINUTES AROUND 0300 AM. EKG WAS DONE AND SHOWS SINUS ARYTHMIA. RESLUT PLACED IN CHART PT IS ASYMPTOMATIC. WILL CONTINUE TO MONITOR
--- NOTE | 2017-09-03 07:55 | NUR ---
ASSUMED PT. CARE AND RECEIVED REPORT AT 0730. PT A/OX4, VSS, MONITOR ON TRACING SR. PT. DENIES CURRENT PAIN/SOB. ON RA @ 98%. PT. ASSISTED UP TO CHAIR, FALL PRECAUTIONS IN PLACE. PT. INQUIRING TO DC TODAY, STATES HE FEELS GOOD ENOUGH TO GO HOME. CALL LIGHT IN REACH, WILL CONTINUE WITH PLAN OF CARE.
--- NOTE | 2017-09-03 10:27 | NUR ---
PT. REPORTS NOT FEELING WELL AND DOES NOT WANT TO DC TODAY PLANNED. PT. STATES HE FEELS LIKE HE IS HAVING ONE OF HIS "SPELLS". WITH INCREASED WEAKNESS/SOB/DIZZY. UPON ASSESSMENT PT. BLOOD PRESSURE 85/52, HEART RATE 55 AND APPEARS TO BE BACK IN AFIB. DR. HADDAD NOTIFIED OF CHANGE, ORDER RECEIVED TO HOLD DISCHARGE FOR NOW AND MONITOR FURTHER TODAY, EKG BEING OBTAINED TO CONFIRM RHYTHM.
--- NOTE | 2017-09-03 16:57 | EKG ---
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1930 Requested By: Luz Maria Torres Order Number: [id number] Risa MD: Amos Polo Measurements Intervals [place] Rate: 90 P: 165 ME: QRS: -6 QRSD: 101 T: 177 QT: 342 QTc: 419 Interpretive Statements Atrial flutter with variable AV conduction Low voltage, extremity leads Repol abnrm suggests ischemia, anterolateral Compared to ECG 08/31/2017 18:41:21 Low QRS voltage now present Ventricular premature complex(es) no longer present Possible ischemia still present Electronically Signed On 09-03-2017 16:57:23 CDT by Amos Polo [email or web address] <ELECTRONICALLY SIGNED> By: Amos Polo MD, FACC 09/03/17 1657 9 9 Amos Polo MD, FACC /EPI
--- NOTE | 2017-09-03 16:59 | EKG ---
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1930 Requested By: Iain Mccall Order Number: [id number] Risa MD: Amos Polo Measurements Intervals [place] Rate: 60 P: ME: QRS: 31 QRSD: 105 T: 145 QT: 431 QTc: 431 Interpretive Statements Atrial flutter with varied AV block, Low voltage, extremity leads Abnormal T, consider ischemia, lateral leads Minimal ST elevation, inferior leads Compared to ECG 08/31/2017 18:41:21 Low QRS voltage now present T-wave abnormality now present ST (T wave) deviation now present Atrial fibrillation no longer present Ventricular premature complex(es) no longer present Early repolarization no longer present Possible ischemia still present Electronically Signed On 09-03-2017 16:59:23 CDT by Amos Polo [email or web address] <ELECTRONICALLY SIGNED> By: Amos Polo MD, [facility] 09/03/17 1659 1027 1027 Amos Polo MD, [facility] /EPI
--- NOTE | 2017-09-03 18:51 | NUR ---
PT. STATES HE IS FEELING BETTER THIS AFTERNOON, BUT REMAINS WEAK AND SOB. HEART RHYTHM REMAINS IN AFLUTTER, PER DR. JOHNSON PT. IS CHRONIC AFLUTTER. PT. GIVEN 500ML FLUID BOLUS PER ORDERS DUE TO LOWER BP. UP TO CHAIR FOR MEALS, TOLERATED WELL. CALLS OUT APPROPRIATELY FOR ASSISTANCE. FALL PRECAUTIONS IN PLACE, WILL CONTINUE WITH PLAN OF CARE.
[2017-09-04] VITALS: BP 114/51
--- NOTE | 2017-09-04 01:53 | NUR ---
ASSSUMED PT CARE AT 19:15, PT IS ALERT, AWAKE, ORIENTED X 4 . VITAL SIGNS WITHIN NORMAL LIMIT. ASSESSMENT PERFORMED. REFER TO CHART. 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 PT DOES NOT COMPLAIN ABOUT PAIN AT THIS MOMENT. CONCERN ABOUT CHEST X RAY RESULT . RESULT WAS COMMUNICATED TO PT WHICH STATED UNDERSTANDING. SAFTY MAINTAINED. PLAN TO MONITOR URINARY OUTPUT DURING SHIFT. PT STATES FEELING WELL AND WANTS TO REST .PT CURRNETLY SLEEPING. ROOM KEPT QUIET . WILL CONTINUE TO MONITOR.
[2017-09-04 04:08] VITALS: BP 109/57
[2017-09-04 08:00] VITALS: BP 108/61
--- NOTE | 2017-09-04 08:00 | NUR ---
ASSUMED PT. CARE AND RECEIVED REPORT AT 0730. PT A/OX4, BP BETTER AT 108/61, HEART RATE 87. PT. ON 2L NC @ 97%. PT. REPORTS FEELING BETTER TODAY, BUT NOT 100%. FULL ASSESSMENT COMPLETED, REFER TO CHARTING. PT. EXPRESSING CONCERN FOR RECENT NECK PAIN IN THE LAST WEEK AND WOULD LIKE A "SCAN" DONE TO CHECK IT OUT. WILL DISCUSS WITH PHYSICIAN TODAY. PT. UP TO RECLINER, STATES HE BREATHES BETTER SITTING UP. FALL PRECAUTIONS IN PLACE. CALL LIGHT IN REACH, WILL CONTINUE WITH PLAN OF CARE.
--- NOTE | 2017-09-04 09:24 | CON ---
[address] [address] CONSULTATION Name: JT MORRIS Room: [address] IN M.R.#: [id number] Admission: 08/31/17 Attend Phys: Luz Maria Torres MD Discharge: Date of : [birth year] Report #: [id number] THIS REPORT FOR: //name// CC: Manuelito Connell MD [facility] Manuelito Torres CARDIOLOGY CONSULTATION INDICATION: Atrial flutter. 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 There was also some question of pneumonia. The patient had been on antibiotics. He has a history of coronary artery disease, paroxysmal atrial fibrillation, paroxysmal atrial flutter, ischemic cardiomyopathy, hypertension and hyperlipidemia. From reviewing available EKGs and telemetry strips, it appears he has been in atrial flutter during this hospital stay. He was nearing discharge when this morning, he became quite weak and hypotensive. At the time of my interview, he remains moderately weak, but slightly improved. He denies shortness of breath. He denies chest pain. He is without other complaint at this time. PAST MEDICAL HISTORY: 1. Coronary artery disease. 2. Ischemic cardiomyopathy. 3. Paroxysmal atrial fibrillation/flutter. 4. Pulmonary hypertension. 5. History of GI bleeding. 6. Essential hypertension. 7. Hyperlipidemia. 8. Hypothyroidism. SOCIAL HISTORY: The patient quit smoking over 40 years ago. He does not drink alcohol. He is . His is in attendance with him today. FAMILY HISTORY: Noncontributory. HOME MEDICATIONS: Aspirin 81 mg daily, carvedilol 6.25 mg b.i.d., finasteride 5 mg daily, furosemide 40 mg daily, levothyroxine 150 mcg daily, lisinopril 2.5 mg daily, Singulair 10 mg at bedtime, Nitrostat p.r.n., Flomax 0.4 mg daily and vitamin D 50,000 units weekly. ALLERGIES: PENICILLIN. PHYSICAL EXAMINATION: [place] [address] CONSULTATION Name: JT MORRIS Room: [address]#: [id number] Admission: 08/31/17 Attend Phys: Luz Maria Torres MD Discharge: Date of : [birth year] Report #: [id number] VITAL SIGNS: Blood pressure 97/54, pulse is in the 80s and irregular. GENERAL: This is a pleasant elderly male who is in no distress. HEENT: Normocephalic, atraumatic. O2 nasal cannula in place. Extraocular muscles intact. NECK EXAMINATION: Shows no jugular venous distention. CHEST EXAMINATION: Reveals diminished breath sounds throughout. I do not appreciate wheezes or rales. CARDIAC EXAMINATION: Reveals an irregular rhythm that is rate controlled. I do not appreciate gallop or murmur. ABDOMEN: Examination reveals normal bowel sounds. The abdomen is soft, nontender. EXTREMITIES: Examination shows no edema. Peripheral pulses 2+ and palpable. SKIN: Warm and dry. LABORATORY DATA: A 12-lead EKG shows atrial flutter with variable AV conduction. Labs were reviewed. BUN 20, creatinine 1.5. Chest x-ray has been ordered and is pending. IMPRESSION AND RECOMMENDATIONS: 1. Atrial flutter is chronic. I would continue rate control at this time. He is not anticoagulated due to history of gastrointestinal bleeding. 2. Coronary artery disease, presently stable. He is not having any symptoms to suggest angina or acute coronary syndrome. 3. Ischemic cardiomyopathy. Continuing carvedilol and lisinopril as blood pressure tolerates. 4. Hypertension. Blood pressure actually low now. We will follow and adjust medicines as needed. 5. Hyperlipidemia by history, his most recent cholesterol profile shows him to be extremely low. His atorvastatin has been discontinued some time ago. Follow clinically. 6. Hypotension and weakness, etiology not entirely clear. I am going to start with a fluid bolus to see if improving his blood pressure may help. May need to hold his carvedilol and lisinopril if his blood pressure does not respond. I am obtaining x-ray to evaluate for possible pneumonia. The patient does not have a fever or appear septic at this point in time, but we will follow clinically. <ELECTRONICALLY SIGNED> By: Amos Polo MD, FACC 09/04/17 0924 1542 [id number] Polo MD, FACC /nt
--- NOTE | 2017-09-04 11:36 | NUR ---
CONTINUE TO FOLLOW, DISCUSSED WITH DR HADDAD, RECOMMENDING SNF. MET WITH PT AND SPOKE WITH /EDA OVER THE PHONE. SHE STATED THAT CALLED HER TO DISCUSS. HER DTR LIVES WITH THEM BUT WORKS. CONCERNED ABOUT BEING ABLE TO CARE FOR PT AT HOME. DISCUSSED SNF, SHE PLANS TO COME TALK WITH PT ABOUT IT. WILL FOLLOW
[2017-09-04 11:55] VITALS: BP 111/59
[2017-09-04 15:16] VITALS: BP 102/45
--- NOTE | 2017-09-04 19:00 | NUR ---
PT. STABLE THROUGH OUT SHIFT. UP TO CHAIR WITH ASSISTANCE, TOLERATED WELL. NO NEW COMPLAINTS OF PAIN OR FEELING WEEK. CHANGE IN COREG DOSE, WITH FIRST DOSE GIVEN THIS EVENING. HOURLY ROUNDING COMPLETED THROUGH OUT THE DAY FOR PATIENT SAFETY.
[2017-09-04 20:00] VITALS: BP 110/45
[2017-09-05 00:08] VITALS: BP 97/47
--- NOTE | 2017-09-05 01:33 | NUR ---
ASSUMED PT CARE AT 1930 PT IS ALERT AWAKE ORIENTED X 4. VITAL SIGN WITHIN NORMAL LIMIT. NO COMPLAIN OF PAIN. HELP PT STAND BY BED TO URINATE. OUTPUT RECORDER OF 250 CC. PT IS ON 2 L NC OF OXY FOR COMFORT. SINUS RYTHM ONTHE MONITOR. SATURATION 100% ASSESSMENT PERFOREMED REFER TO CHART. PLAN I STO MAINTAIN SAFETY OXYGENTION MEDICATIONS WERE ADMINISTERED ORDERED. PT WANTS TO SLEEP. SO QUIET TIME PROVIDED. CURRENTLY IN BED. WILL CONTINUE TO MONITOR
[2017-09-05 03:33] VITALS: BP 116/50
[2017-09-05 09:00] VITALS: BP 112/69
--- NOTE | 2017-09-05 11:09 | NUR ---
ORDERS NOTED FOR DC TO SNF. MET WITH PT AND SPOKE WITH [facility] OVER THE PHONE. THEY ARE STILL WANTING PT TO GO TO SNF IF QUALIFIES. CALLED AND FAXED UPDATED THERAPY NOTES TO [facility], AWAIT CALL BACK
--- NOTE | 2017-09-05 11:38 | NUR ---
ASSUMED CARE OF PATIENT THIS AM AT 0730. PATIENT IS ALERT AND ORIENTED X 4. HE DENIES PAIN THIS AM. PATIENT ASSISTED UP TO THE CHAIR WITH STANDBY ASSIST. PATIENT IS TAKING HIS DIET WELL. TELE SHOWS NSR. IN TO ROUND. PLANS TO DISCHARGE TO HOME OR SNF THIS AFTERNOON. SALINE LOCK AND TELE MONITOR DISCONTINUED.
[2017-09-05 11:51] VITALS: BP 112/69
[2017-09-05] MEDS ORDERED: DOXYCYCLINE 10100 MG PO (12:30)
[2017-09-05] MEDS ORDERED: PROTONIX40 M1 PO (12:43)
[2017-09-05 12:44] VITALS: BP 112/69
[2017-09-05 14:27] VITALS: BP 112/69
== END 2017-09-05 14:39 | disposition home health service (06) | DRG 682 ==
LOC: M.ERS 17:14 → M.TBA-ER 19:19 → M.2W 19:19
PROVIDERS: Emergency Medicine Emergency Medical Services; Internal Medicine; ADMIT Internal Medicine
DX: N17.9 Acute kidney failure, unspecified (principal); J69.0 Pneumonitis due to inhalation of food and vomit; R65.10 Systemic inflammatory response syndrome (SIRS) of non-infectious origin without acute organ dysfunction; I48.92 Unspecified atrial flutter; I13.0 Hypertensive heart and chronic kidney disease with heart failure and stage 1 through stage 4 chronic kidney disease, or unspecified chronic kidney disease; I48.91 Unspecified atrial fibrillation; I50.9 Heart failure, unspecified; N40.0 Benign prostatic hyperplasia without lower urinary tract symptoms; R33.9 Retention of urine, unspecified; I25.10 Atherosclerotic heart disease of native coronary artery without angina pectoris; I25.5 Ischemic cardiomyopathy; I48.0 Paroxysmal atrial fibrillation; E78.5 Hyperlipidemia, unspecified; E03.9 Hypothyroidism, unspecified; I95.9 Hypotension, unspecified; N18.9 Chronic kidney disease, unspecified; Z79.82 Long term (current) use of aspirin; Z95.5 Presence of coronary angioplasty implant and graft; Z88.0 Allergy status to penicillin; Z87.891 Personal history of nicotine dependence; Z79.899 Other long term (current) drug therapy

== ENCOUNTER → 2017-09-20 | Outpatient (CLI) | payer OTHER ==
[~2017-09-20] MED LIST changes: +DOXYCYCLINE 10100 MG PO; +PROTONIX40 M1 PO
== END ==
LOC: M.LAB 15:06
DX: I48.0 Paroxysmal atrial fibrillation (principal); I48.92 Unspecified atrial flutter

== ENCOUNTER 2017-12-29 18:28 | Emergency (ER) | payer OTHER ==
[~2017-12-29] VITALS: Ht 172.7 cm; Wt 90.7 kg
[2017-12-29 18:29] VITALS: BP 184/140
[2017-12-29 18:52] LABS: ABSOLUTE BASOPHILS 0.1 thou/uL (0.0-0.2); ABSOLUTE EOSINOPHILS 0.1 thou/uL (0.0-0.7); ABSOLUTE LYMPHOCYTES 7.6 thou/uL (0.8-5.3); ABSOLUTE MONOCYTES 0.9 thou/uL (0.0-1.2); ABSOLUTE NEUTROPHILS 8.9 thou/uL (1.6-8.1); BASOPHILS 0.4 %; EOSINOPHILS 0.4 %; HEMATOCRIT 35.4 % (42.0-52.0); HEMOGLOBIN 11.8 gm/dL (14.0-18.0); LYMPHOCYTES 43.4 %; MCH 33.9 pg (26.0-34.0); MCHC 33.3 g/dL (28.0-37.0); MCV 101.9 fL (80.0-100.0); MONOCYTES 5.1 %; MPV 9.3 fl. (7.2-11.1); NUCLEATED RBCS 0 /100WBC; PLATELET COUNT* 169 thou/uL (150-400); POLYS 50.7 %; RBC 3.47 mil/uL (4.50-6.00); RDW-CV 14.4 % (10.5-14.5); WBC 17.5 thou/uL (4.0-11.0)
[2017-12-29 19:06] LABS: CALCIUM 7.7 mg/dL (8.5-10.1); CREATININE 1.4 mg/dL (0.6-1.3); POTASSIUM 3.1 mmol/L (3.5-5.1)
[2017-12-29 19:14] LABS: APTT 34.7 Seconds (25.0-31.3); INR 1.3; PROTIME 12.8 Seconds (9.20-11.50)
[2017-12-29 19:24] LABS: ALBUMIN 2.6 g/dL (3.4-5.0); CK-MB MASS 2.4 ng/mL (<0.5-3.6); MAGNESIUM 1.7 mg/dL (1.8-2.4); TOTAL BILIRUBIN 0.6 mg/dL (<0.1-1.0); TOTAL PROTEIN 5.6 g/dL (6.4-8.2); TROPONIN-I LEVEL 0.45 ng/mL (<0.06)
[2017-12-29 19:48] LABS: BE -14.3 mmol/L (-2 to +3); HCO3 15.6 mmol/L (22.0-26.0); PO2 66.7 mmHg (75.0-100.0)
[2017-12-29 19:52] LABS: PCO2 56.1 mmHg (35.0-45.0); pH 7.063 (7.340-7.450)
--- NOTE | 2017-12-29 22:20 | NUR ---
CALLED TO ROOM BY FAMILY, THEY ARE REQUESTING PT BE TAKEN OFF OF THE VENILATOR, AND HIS BREATHING TUBE BE REMOVED. SPOKE WITH DR LAM WHO ADDRESSED THE FAMILY'S REQUEST, TUBE PULLED, AND VENTILATOR TURNED OFF BY RN. NO GAG OR COUGH REFLEX NOTED UPON ET TUBE REMOVAL. AIRWAY SUCTION PROVIDED, PAIN MEDICATION PROVIDED FOR PERCEIVED PAIN. WILL CONTINUE TO MONITOR.
[2017-12-29 22:30] VITALS: BP 000/000
--- NOTE | 2017-12-30 12:07 | EKG ---
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1930 Requested By: Samson Menendez Order Number: [id number] MD: Abe Longoria Measurements Intervals [place] Rate: 51 P: OR: QRS: 97 QRSD: 157 T: 123 QT: 548 QTc: 505 Interpretive Statements Atrial fibrillation RBBB and LPFB Repol abnrm suggests ischemia, diffuse leads Compared to ECG 09/03/2017 10:27:34 Left posterior fascicular block now present Right bundle-branch block now present Early repolarization now present Atrial flutter no longer present T-wave abnormality no longer present ST (T wave) deviation no longer present Possible ischemia still present Electronically Signed On 12-30-2017 12:06:43 CDT by Abe Longoria [email or web address] <ELECTRONICALLY SIGNED> By: Abe Longoria MD, [facility] 12/30/17 1206 31 31 Abe Longoria MD, [facility] /EPI
== END 2017-12-30 ==
LOC: M.ERS 18:28 → M.TBA-ER 19:13
PROVIDERS: Emergency Medicine; Internal Medicine
DX: I46.9 Cardiac arrest, cause unspecified (principal); I48.91 Unspecified atrial fibrillation; I11.0 Hypertensive heart disease with heart failure; I50.9 Heart failure, unspecified; Z95.5 Presence of coronary angioplasty implant and graft; Z88.0 Allergy status to penicillin; Z87.891 Personal history of nicotine dependence